=== PATIENT | female | born 1940 | race Caucasian/White ===

== ENCOUNTER → 2018-06-25 | Outpatient (CLI) | payer MEDICARE ==
--- NOTE | 2018-06-25 16:39 | FL ---
EXAMINATION: Cervical and Thoracic Esophagram DATE OF EXAM: 06/25/2018 CLINICAL INDICATION: 77-year-old female status post Jah fundoplication 2015 with sensation of food not passing down and with recurrent reflux. COMPARISON: 07/11/2015 Total Fluoroscopy Time: 1.57 minutes. Total images: 35 FINDINGS: The swallowing mechanism is normal. A small Zenker's diverticulum is incidentally noted. The cervical and thoracic portions have a normal course and caliber and normal motility. The mucosa is normal and no persistent filling defect is encountered. However, there is recurrence of a moderate-sized hiatal hernia. There is narrowing along the lower po rtion of the hernia also noted. Reflux could not be elicited during the course of the exam. IMPRESSION: 1. Recurrent moderate-sized hiatal hernia. There is some narrowing along the lower portion of the her alesia suggesting a preserved wrap which is also herniated above the diaphragm. 2. Incidental small Zenker's diverticulum.
== END | disposition home or self-care (01) ==
LOC: RADFLMAIN 11:05
PROVIDERS: ATTEND Surgery
DX: K44.9 Diaphragmatic hernia without obstruction or gangrene (principal)
CPT/HCPCS: 74220

== ENCOUNTER → 2019-03-20 | Outpatient (CLI) | payer MEDICARE ==
--- NOTE | 2019-03-20 14:43 | CT ---
EXAMINATION TYPE: CT sinus wo con DATE OF EXAM: 03/20/2019 COMPARISON: NONE HISTORY: History of Noemy's granulomatosis. Patient complains of masses in her nose. CT DLP: 593.6 mGycm. Automated Exposure Control for Dose Reduction was Utilized. TECHNIQUE: CT scan of the sinuses is performed without contrast, axial images are obtained, coronal r eformatted images are also reviewed. FINDINGS: There is patchy opacity in the smaller caliber right sphenoid sinus. Remainder paranasal s inuses are clear without suspicious opacification or air fluid levels. The ostiomeatal complex is pat ent bilaterally on the coronal images. Nasal structures and turbinates appear within normal limits. Visualized portion of mastoid air cells show no abnormal opacification. The globes are intact bilate rally. Visualized portion of brain parenchyma shows diffuse atrophy. IMPRESSION: Possible mild right-sided acute sphenoid sinus disease. No suspicious nasal masses ident ified.
== END | disposition home or self-care (01) ==
LOC: RADCTMAIN 13:52
PROVIDERS: ATTEND Otolaryngology
DX: J32.9 Chronic sinusitis, unspecified (principal); M31.31 Wegener's granulomatosis with renal involvement
CPT/HCPCS: 70486

== ENCOUNTER → 2022-07-02 | Outpatient (CLI) | payer MEDICARE ==
[~2022-07-02] MED LIST: TIXAGEVIMAB/CILGAVIMAB (EUA) 300 MG/3 ML COMBO.PKG IM NR
[2022-07-02 13:58] VITALS: RESP 16; TEMP 97.6
[2022-07-02 14:44] VITALS: BP 126/62; PULSE 70
== END ==
LOC: PROCWHC3 13:47
PROVIDERS: ATTEND Family Medicine
DX: M31.30 Wegener's granulomatosis without renal involvement (principal); Z87.891 Personal history of nicotine dependence; Z88.0 Allergy status to penicillin
CPT/HCPCS: Q0220; M0220

== ENCOUNTER → 2023-07-30 | Outpatient (CLI) | payer MEDICARE ==
[~2023-07-30] MED LIST changes: +ACETAMINOPHEN TAB 325 MG TAB PO NR; +RITUXIMAB PVVR IV NR; +SODIUM CHLORIDE 0.9% 500 ML 500 ML in EMPTY BAG 1 BAG IV PRN; +SODIUM CHLORIDE 0.9% IV NR; -TIXAGEVIMAB/CILGAVIMAB (EUA) 300 MG/3 ML COMBO.PKG IM NR; +diphenhydrAMINE 25 MG CAP PO NR; +diphenhydrAMINE 50 MG/ML 1 ML VIAL IVP NR; +methylPREDNISolone SOD SUCCI 125 MG/2 ML VIAL IV NR
[2023-07-30 11:53] VITALS: RESP 16; TEMP 98.3
[2023-07-30 13:25] VITALS: BP 108/63; PULSE 60
== END ==
LOC: PROCWHC3 11:13
PROVIDERS: ATTEND Internal Medicine Rheumatology
DX: M31.30 Wegener's granulomatosis without renal involvement (principal); Z88.0 Allergy status to penicillin
CPT/HCPCS: 96375; 96413; 96415; J1200; J2930; Q5119; 96365; 96366

== ENCOUNTER → 2024-05-19 | Outpatient (CLI) | payer MEDICARE ==
--- NOTE | 2024-05-19 09:43 | US ---
EXAMINATION TYPE: US arterial LE single level DATE OF EXAM: 05/19/2024 9:19 AM CLINICAL INDICATION: Female, 83 years old with history of I87.312 CHRONIC VENOUS HYPERTENSION (IDIOPA THIC) W; Non-healing wound left lateral lower leg History of: Smoker: Prior Hypertension: Yes Diabetic: No Hyperlipidemia: Yes TIA/CVA: No Previous Vascular Surgery: No VT: No Vascular Ulcers: Left Claudication: No Doppler Waveforms: Right: Biphasic waveforms within the femoral and popliteal arteries. Monophasic waveform within the d orsalis pedis artery. Left: Biphasic waveform in the left femoral artery. Monophasic waveform within the left popliteal art nadia. Right Brachial Pressure: Deferred due to dialysis graft Left Brachial Pressure: 177 Ankle-Brachial Indices: Right: 1.0 Left: Unable to obtain audible signals at DP and PT to obtain an [place] (Vessel hardening > 1.4; Normal 0.9 - 1.4, Moderate 0.7 - 0.9, Severe 0.5-0.7) Toe Brachial Indices: Right: 0.3 Left: 0.2 IMPRESSION: 1. Ankle-brachial index suggestive of at least mild peripheral arterial vascular disease throughout t he right lower extremity. Abnormal toe brachial index suggesting at least moderate peripheral arteria l vascular disease. 2. Unable to obtain signals for left ankle brachial index. Abnormal toe brachial index suggesting at least moderate peripheral arteriovascular disease. Overall findings suggest at least moderate peripheral arteriovascular disease. Consider further evalu ation with CTA runoff as clinically indicated.
== END | disposition home or self-care (01) ==
LOC: RADUSWWP 08:46
PROVIDERS: ATTEND Family Medicine
DX: I87.312 Chronic venous hypertension (idiopathic) with ulcer of left lower extremity (principal); I50.32 Chronic diastolic (congestive) heart failure; I12.0 Hypertensive chronic kidney disease with stage 5 chronic kidney disease or end stage renal disease; E78.5 Hyperlipidemia, unspecified; L97.825 Non-pressure chronic ulcer of other part of left lower leg with muscle involvement without evidence of necrosis; M31.31 Wegener's granulomatosis with renal involvement; N18.6 End stage renal disease
CPT/HCPCS: 93922

== ENCOUNTER 2025-03-01 12:11 | Emergency (ER) | payer MEDICARE ==
[2025-03-01 12:17] VITALS: TEMP 98.2
--- NOTE | 2025-03-01 12:34 | ED ---
General Adult HPI - General Chief complaint: Extremity Problem,Nontraumatic Stated complaint: Swelling in left leg Time Seen by Provider: 03/01/25 12:15 Source: patient, RN notes reviewed, old records reviewed Mode of arrival: wheelchair Limitations: no limitations - History of Present Illness Initial comments: This is an 84-year-old female who presents to the emergency department because her left leg is swollen. Patient states she was at dialysis today and they suggested she come in because her left leg is been swollen for about a week. Patient states she did have a fall about a week ago and she hurt the lateral aspect of her left knee a little bit as well as her tailbone and lower back. Patient denies hitting her head or neck. Patient Nuys any numbness weakness. Patient has any chest pain or upper back pain. Patient has any upper extremity pain. - Related Data Home Medications Medication Instructions Recorded Confirmed Calcium Carbonate [Tums] 500 mg PO QID PRN 02/05/22 03/01/25 Clopidogrel [Plavix] 75 mg PO DAILY 06/21/22 03/01/25 Atorvastatin [Lipitor] 40 mg PO DAILY 03/01/25 03/01/25 Levothyroxine Sodium [Synthroid] 88 mcg PO DAILY 03/01/25 03/01/25 Midodrine [ProAmatine] 5 mg PO BID PRN 03/01/25 03/01/25 traMADol HCL 50 mg PO BID PRN 03/01/25 03/01/25 Allergies Allergy/AdvReac Type Severity Reaction Status Date / Time Penicillins Allergy swilling Verified 03/01/25 13:13 at injection site & itching Review of Systems ROS Statement: Those systems with pertinent positive or pertinent negative responses have been documented in the HPI. ROS Other: All systems not noted in ROS Statement are negative. Past Medical History Past Medical History: Blood Disorder, GERD/Reflux, Hyperlipidemia, Hypertension, Memory Impairment, Musculoskeletal Disorder, Osteoarthritis (OA), Renal Disease, Thyroid Disorder Additional Past Medical History / Comment(s): hx. heart murmur, frequent leg cramps, lower leg & foot swelling, iron deficiency anemia. WEGENRS GRANULOMATOSIS, dialysis. MOISE.,CKD, History of Any Multi-Drug Resistant Organisms: None Reported Past Surgical History: Appendectomy, Joint Replacement, Orthopedic Surgery, Tonsillectomy Additional Past Surgical History / Comment(s): laparoscopic jonh fundoplasty, bilateral cataract removal, ORIF left hip, left hip replaced, 09-14-15 lap ventral hernia repair. Past Anesthesia/Blood Transfusion Reactions: No Reported Reaction Additional Past Anesthesia/Blood Transfusion Reaction / Comment(s): Pt has never recieved blood. Past Psychological History: Anxiety, Depression Smoking Status: Former smoker - Past Family History Father Family Medical History: Cancer Additional Family Medical History / Comment(s): lung General Exam - General Exam Comments Initial Comments: GENERAL: Patient is well-developed and well-nourished. Patient is nontoxic and well- hydrated and is in mild distress. ENT: Neck is soft and supple. No significant lymphadenopathy is noted. Oropharynx is clear. Moist mucous membranes. Neck has full range of motion without eliciting any pain. EYES: The sclera were anicteric and conjunctiva were pink and moist. Extraocular movements were intact and pupils were equal round and reactive to light. Eyelids were unremarkable. PULMONARY: Unlabored respirations. Good breath sounds bilaterally. No audible rales rhonchi or wheezing was noted. CARDIOVASCULAR: There is a regular rate and rhythm without any murmurs gallops or rubs. ABDOMEN: Soft and nontender with normal bowel sounds. . SKIN: Skin is clear with no lesions or rashes and otherwise unremarkable. NEUROLOGIC: Patient is alert and oriented x3. Cranial nerves II through XII are grossly intact. Motor and sensory are also intact. Normal speech, volume and content. Symmetrical smile. MUSCULOSKELETAL: Patient's left leg is swollen and patient has tenderness along the calf and lateral aspect of the knee. Patient also has some lower back pain. Patient is edema in the left leg a little bit in the right leg LYMPHATICS: No significant lymphadenopathy is noted PSYCHIATRIC: Normal psychiatric evaluation. Limitations: no limitations Course Vital Signs 03/01/25 12:15 Temperature 98.2 F Pulse Rate 70 Respiratory 16 Rate Blood Pressure 161/77 O2 Sat by Pulse 97 Oximetry Medical Decision Making - Medical Decision Making Was pt. sent in by a medical professional or institution (, PA, CIVIL ENGINEER HELPER, urgent care, hospital, or retirement...) When possible be specific @ -No Did you speak to anyone other than the patient for history (EMS, parent, family, police, friend...)? What history was obtained from this source @ -No Did you review nursing and triage notes (agree or disagree)? Why? @ -I reviewed and agree with nursing and triage notes Were old charts reviewed (outside hosp., previous admission, EMS record, old EKG, old radiological studies, urgent care reports/EKG's, retirement records)? Report findings @ -No old charts were reviewed Differential Diagnosis? @ -DVT, cellulitis, knee strain, lower lumbar fracture, coccyx fracture, arterial occlusion, this is not an all-inclusive list EKG interpreted by me (3pts min.). @ -As above X-rays interpreted by me (1pt min.). @ -X-ray of the knee showed no acute abnormality. X-ray of the lumbar and coccyx sacral region showed no acute abnormality CT interpreted by me (1pt min.). @ -None done U/S interpreted by me (1pt. min.). @ -Ultrasound showed no DVT What testing was considered but not performed or refused? (CT, X-rays, U/S, labs)? Why? @ -None What meds were considered but not given or refused? Why? @ -None Did you discuss the management of the patient with other professionals (patricia andrew i.e. , PA, CIVIL ENGINEER HELPER, lab, RT, psych nurse, psychologist social, clinical safety specialist, teacher, photographic intelligence officer, oil field caser)? Give summary @ -No Was smoking cessation discussed for >3mins.? @ -No Was critical care preformed (if so, how long)? @ -No Were there social determinants of health that impacted care today? How? (Homelessness, low income, unemployed, alcoholism, drug addiction, transportation, low edu. Level, literacy, decrease access to med. care, skilled nursing, rehab)? @ -No Was there de-escalation of care discussed even if they declined (Discuss DNR or withdrawal of care, Hospice)? DNR status @ -No What co-morbidities impacted this encounter? (DM, HTN, Smoking, COPD, CAD, Cancer, CVA, ARF, Chemo, Hep., AIDS, mental health diagnosis, sleep apnea, morbid obesity)? @ -None Was patient admitted / discharged? Hospital course, mention meds given and route, prescriptions, significant lab abnormalities, going to OR and other pertinent info. @ -Patient stated that she did not want knee brace because it be difficult for her to walk and she is able to walk okay now. Patient was instructed to follow- up with orthopedics. Patient also was instructed to wear CLAUDIA hose and keep her leg elevated and and take a low sodium diet Undiagnosed new problem with uncertain prognosis? @ -No Drug Therapy requiring intensive monitoring for toxicity (Heparin, Nitro, Insulin, Cardizem)? @ -No Were any procedures done? @ -No Diagnosis/symptom? @ -Left knee strain Acute, or Chronic, or Acute on Chronic? @ -Acute Uncomplicated (without systemic symptoms) or Complicated (systemic symptoms)? @ -Uncomplicated Side effects of treatment? @ -No Exacerbation, Progression, or Severe Exacerbation? @ -No Poses a threat to life or bodily function? How? (Chest pain, [place], [place], pneumonia, PE, COPD, DKA, ARF, appy, cholecystitis, CVA, Diverticulitis, Homicidal, Suicidal, threat to staff... and all critical care pts) @ -No Disposition Clinical Impression: Strain of left knee Disposition: HOME SELF-CARE Additional Instructions: Patient needs to wear some CLAUDIA hose on the left leg follow a low-sodium diet and elevate legs when possible patient should follow-up with orthopedics Is patient prescribed a controlled substance at d/c from ED?: No Referrals: Santiago Kenney MD [Primary Care Provider] - 1-2 days Time of Disposition: 14:48
[2025-03-01] MEDS: KETOROLAC 15 MG/ML 1 ML VIAL IM STA (12:49)
--- NOTE | 2025-03-01 13:31 | XR ---
EXAMINATION TYPE: XR knee complete LT DATE OF EXAM: 03/01/2025 1:24 PM INDICATION: Patient age:Female; 84 years old; Reason for study: Trauma; [facility]. pain COMPARISON: Left tibia/fibular radiograph 05/07/2024 TECHNIQUE: The Left knee(s) was examined in Frontal, lateral and oblique projections. FINDINGS: No evidence of any acute osseous pathology, soft tissue swelling, or joint effusion is no cesilia. Tricompartmental joint space narrowing which is most pronounced involving the medial tibiofemora l joint space and patellofemoral joint space. Similar scattered soft tissue calcifications with large st along the medial aspect of the proximal tibia. Vascular sclerosis. IMPRESSION: 1. No acute osseous pathology. 2. Mild to moderate tricompartmental osteoarthritic changes. [facility], , 03/01/2025 1:29 PM
--- NOTE | 2025-03-01 13:35 | XR ---
EXAMINATION TYPE: XR lumbosacral spine min 4V, XR sacrum coccyx DATE OF EXAM: 03/01/2025 1:24 PM INDICATION: Patient age:Female; 84 years old; Reason for study: Trauma; [facility]H. pain COMPARISON: None TECHNIQUE: Frontal, lateral , bilateral oblique and coned in L5-S1 lateral views of the spine. 3 view s of the sacrum/coccyx were obtained. FINDINGS: Diffuse bone demineralization which limits evaluation. There are 5 lumbar type vertebral stalin dies identified. Postsurgical changes from left hip arthroplasty with partial visualization of surrou nding acetabular fixation hardware. No evidence of any acute osseous pathology. Both SI joints appea r grossly intact. No evidence of loss of vertebral body height is seen. No spondylolisthesis. Mild le voscoliotic curvature of the lumbar spine. Multilevel anterior osteophytosis with disc space narrowin g, vacuum disc disease, and endplate sclerosis. Multilevel facet arthropathy. Atherosclerotic calcifi cation of the aorta. Pelvic phleboliths. Possible sacral decubitus ulcer. Dense mitral annulus calcif ications. IMPRESSION: 1. No acute process. 2. 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 3. Levoscoliotic curvature of the lumbar spine. 4. Possible sacral decubitus ulcer. Correlate clinically. [facility], , 03/01/2025 1:32 PM
--- NOTE | 2025-03-01 14:18 | US ---
EXAMINATION TYPE: US venous doppler duplex LE LT DATE OF EXAM: 03/01/2025 2:10 PM COMPARISON: NONE CLINICAL INDICATION: Female, 84 years old with history of Swollen leg; Gets heparin with dialysis, sw elling, Pain TECHNIQUE: The lower extremity deep venous system is examined utilizing real time linear array sonog yung with graded compression, color doppler sonography, and spectral doppler. SIDE PERFORMED: Left FINDINGS: VESSELS IMAGED: Common Femoral Vein Deep Femoral Vein Greater Saphenous Vein * Femoral Vein Popliteal Vein Small Saphenous Vein * Proximal Calf Veins (* superficial vessels) Left Leg: Negative for DVT, Color Doppler imaging shows patency of the vessels. Spectral waveforms a re within normal limits. Edema seen. Limited due to arterial stent shadowing. IMPRESSION: 1. No visualized deep venous thrombosis of the left lower extremity. 2. Left lower extremity subcutaneous edema. [facility], , 03/01/2025 2:16 PM
[2025-03-01 15:24] VITALS: BP 150/68; PULSE 71; RESP 18
== END 2025-03-01 16:02 | disposition home or self-care (01) ==
LOC: EC 12:11
DX: S86.912A Strain of unspecified muscle(s) and tendon(s) at lower leg level, left leg, initial encounter (principal); Z87.891 Personal history of nicotine dependence; Z88.0 Allergy status to penicillin; W18.30XA Fall on same level, unspecified, initial encounter
CPT/HCPCS: 72110; 72220; 99284